=== PATIENT | female | born 1955 | race Caucasian/White ===

== ENCOUNTER → 2024-05-20 14:44 | Outpatient (REF) | payer MEDICARE, OTHER, SELFPAY | LOC: HWWDC 14:44 | PROVIDERS: ATTENDING PHYSICIAN Nurse Practitioner Family; FAMILY PHYSICIAN Nurse Practitioner Family | DX: Z13.820 Encounter for screening for osteoporosis (principal); Z12.31 Encounter for screening mammogram for malignant neoplasm of breast; Z78.0 Asymptomatic menopausal state | CPT/HCPCS: 77063; 77067; 77080 ==

== ENCOUNTER → 2024-05-31 12:49 | Outpatient (REF) | payer MEDICARE, OTHER, SELFPAY ==
[2024-05-31 13:55] LABS: % Basophils 0.5 % (0-2); % Eosinophils 0.4 % (0-6); % Immature Granulocytes 0.3 % (0-0.5); % Lymphocytes 22.2 % (20.5-51.1); % Monocytes 4.7 % (1.7-9.3); % Neutrophils 71.9 % (42.2-75.2); Absolute Basophils 0.1 10^3/uL (0-0.2); Absolute Monocytes 0.4 10^3/uL (0.1-0.6); Absolute Neutrophils 6.6 10^3/uL (1.4-6.5); Hematocrit 44.8 % (37.0-47.0); Hemoglobin 15.4 g/dL (12.0-16.0); Mean Corp Hgb Conc. 34.4 g/dL (33.0-37.0); Mean Corpuscular Hgb 30.3 pg (27.0-31.0); Mean Corpuscular Volume 88.2 fL (81.0-99.0); Nucleated Red Blood Cells % 0 %; Platelet Count 239 10^3/uL (130-400); Red Blood Cell Count 5.08 10^6/uL (4.20-5.40); Red Cell Dist. Width 13.3 % (11.5-14.5); White Blood Cell Count 9.2 10^3/uL (4.8-10.8)
[2024-05-31 14:45] LABS: Glycohemoglobin (HgbA1c) 6.1 % (4.0-5.6)
[2024-05-31 15:10] LABS: ALT (SGPT) 39 U/L (0-35); AST (SGOT) 28 U/L (14-36); Albumin 4.8 g/dl (3.5-5.0); Alkaline Phosphatase 150 U/L (38-126); Blood Urea Nitrogen 15 mg/dl (7-17); Calcium 10.3 mg/dl (8.4-10.2); Carbon Dioxide 28 mmol/L (22-30); Chloride 100 mmol/L (98-107); Glucose 97 mg/dl (70-99); HDL Cholesterol 69 mg/dl; LDL Cholesterol, Calculated 181 mg/dl; Potassium 4.6 mmol/L (3.5-5.1); Sodium 140 mmol/L (135-145); Total Bilirubin 0.9 mg/dl (0.2-1.3); Total Cholesterol 291 mg/dl (50-199); Total Protein 7.3 g/dl (6.3-8.2); Triglyceride 205 mg/dl (10-149); Very Low Density Lipoprotein 41 mg/dl (0-30); eGFR > 60.00
[2024-05-31 15:40] LABS: TSH Reflex To Free T4 1.29 uIU/ml (0.47-4.68)
[2024-06-03 00:54] LABS: Vitamin D 1,25 Dihydroxy 60.8 pg/mL (19.9-79.3)
== END ==
LOC: REG 12:49
PROVIDERS: ATTENDING PHYSICIAN Nurse Practitioner Family
DX: E55.9 Vitamin D deficiency, unspecified (principal); E78.5 Hyperlipidemia, unspecified; R73.9 Hyperglycemia, unspecified; Z76.89 Persons encountering health services in other specified circumstances; E78.2 Mixed hyperlipidemia; Z68.27 Body mass index [BMI] 27.0-27.9, adult
CPT/HCPCS: 36415; 80053; 80061; 82306; 82652; 83036; 84443; 85025